=== PATIENT | male | born 1955 | race Caucasian/White ===

== ENCOUNTER 2024-07-22 07:40 | Day surgery (SDC) | payer MEDICARE, BC ==
[~2024-07-22 07:40] MED LIST: Acetaminophen/Codeine 300-30 MG Tab PO PRN; Ondansetron 4 MG/2 ML SDV IVPUSH PRN
[2024-07-22] MEDS: Sodium Chloride 0.9% 10 ML Syringe FLUSH PRN (08:06)
[2024-07-22] MEDS: Proparacaine 0.5% Ophth Soln 15 ML Bottle EYELF ONE ×2 (08:13→09:15)
[2024-07-22] MEDS: Moxifloxacin 0.5% Ophth Soln 3 ML Bottle EYELF ONE (08:14)
[2024-07-22] MEDS: Povidone-Iodine 5% Sterile Ophth Soln 30 ML Bottle EYELF ONE ×2 (08:15→09:15)
[2024-07-22] MEDS: Phenylephrine 10% Ophth Soln 5 ML Bot EYELF ONE (08:15)
[2024-07-22] MEDS: Tropicamide 1% Ophth Soln 15 ML Bottle EYELF ONE (08:15)
[2024-07-22] MEDS: Timolol Maleate 0.5% Ophth Soln 5 ML Bottle EYELF ONE (08:16)
[2024-07-22] MEDS: Cataract Ophth Solution EYELF ONE (08:18)
[2024-07-22] MEDS: Dexamethasone/Neomycin/Polymyxin B Ophth Oint 3.5 GM Tube EYELF ONE (09:15)
[2024-07-22] MEDS: Apraclonidine 0.5% Ophth Soln 5 ML Bot EYELF ONE (09:15)
[2024-07-22] MEDS: Diclofenac Sodium 0.1% Ophth Soln 5 ML Bottle EYELF ONE (09:15)
[2024-07-22] MEDS: Vancomycin 500 MG SDV EYELF ONE (09:19)
[2024-07-22] MEDS: Lidocaine 1% 30 ML SDV ONE (09:19)
[2024-07-22] MEDS: Acetaminophen 325 MG Tab PO PRN (10:07)
== END 2024-07-22 10:22 | disposition home or self-care (01) ==
LOC: DL.SDS 07:40
PROVIDERS: ATTEND Ophthalmology
DX: H25.812 Combined forms of age-related cataract, left eye (principal); E78.5 Hyperlipidemia, unspecified; I10 Essential (primary) hypertension; I25.10 Atherosclerotic heart disease of native coronary artery without angina pectoris; R73.03 Prediabetes; G47.33 Obstructive sleep apnea (adult) (pediatric); Z87.891 Personal history of nicotine dependence; Z79.899 Other long term (current) drug therapy; Z79.82 Long term (current) use of aspirin; Z79.2 Long term (current) use of antibiotics
CPT/HCPCS: A9270-GY; C1780; J3370; J3490

== ENCOUNTER 2024-08-05 07:35 | Day surgery (SDC) | payer MEDICARE, BC ==
[2024-08-05] MEDS: Proparacaine 0.5% Ophth Soln 15 ML Bottle EYERT ONE ×3 (07:07→08:29)
[2024-08-05] MEDS: Povidone-Iodine 5% Sterile Ophth Soln 30 ML Bottle EYERT ONE ×3 (07:09→08:29)
[2024-08-05] MEDS: Vancomycin 500 MG SDV EYERT ONE ×2 (07:10→08:40)
[2024-08-05] MEDS: Lidocaine 1% with EPINEPHrine 1:100,000 20 ML MDV ONE ×2 (07:10→08:40)
[2024-08-05] MEDS: Diclofenac Sodium 0.1% Ophth Soln 5 ML Bottle EYERT ONE ×2 (07:11→08:43)
[2024-08-05] MEDS: Dexamethasone/Neomycin/Polymyxin B Ophth Oint 3.5 GM Tube EYERT ONE ×2 (07:11→08:43)
[2024-08-05] MEDS: Apraclonidine 0.5% Ophth Soln 5 ML Bot EYERT ONE ×2 (07:11→08:43)
[~2024-08-05 07:35] MED LIST changes: +Acetaminophen 325 MG Tab PO PRN; +Dexamethasone 4 MG/ML SDV ONE; +Dexamethasone/Neomycin/Polymyxin B Ophth Oint 3.5 GM Tube ONE; +Proparacaine 0.5% Ophth Soln 15 ML Bottle ONE
[2024-08-05] MEDS: Sodium Chloride 0.9% 10 ML Syringe FLUSH PRN (07:51)
[2024-08-05] MEDS: Moxifloxacin 0.5% Ophth Soln 3 ML Bottle EYERT ONE (07:57)
[2024-08-05] MEDS: Tropicamide 1% Ophth Soln 15 ML Bottle EYERT ONE (07:58)
[2024-08-05] MEDS: Phenylephrine 10% Ophth Soln 5 ML Bot EYERT ONE (07:59)
[2024-08-05] MEDS: Timolol Maleate 0.5% Ophth Soln 5 ML Bottle EYERT ONE (08:00)
[2024-08-05] MEDS: Cataract Ophth Solution EYERT ONE (08:01)
== END 2024-08-05 09:16 | disposition home or self-care (01) ==
LOC: DL.SDS 07:35
PROVIDERS: ATTEND Ophthalmology
DX: H25.811 Combined forms of age-related cataract, right eye (principal); E78.5 Hyperlipidemia, unspecified; I10 Essential (primary) hypertension; I25.10 Atherosclerotic heart disease of native coronary artery without angina pectoris; R73.03 Prediabetes; G47.33 Obstructive sleep apnea (adult) (pediatric); Z87.891 Personal history of nicotine dependence; Z79.899 Other long term (current) drug therapy; Z79.2 Long term (current) use of antibiotics; Z79.82 Long term (current) use of aspirin
CPT/HCPCS: 66984; A9270; C1780; J3370; J3490